=== PATIENT | female | born 1985 | race Caucasian/White ===

== ENCOUNTER 2018-10-09 12:26 | Emergency (ER) | payer MEDICAID ==
[~2018-10-09] VITALS: Ht 157.5 cm; Wt 99.5 kg
[2018-10-09 12:34] VITALS: Ht 157.5 cm; Wt 99.5 kg
[2018-10-09 14:25] VITALS: BP 133/91; PULSE 88; RESP 20
--- NOTE | 2018-10-09 16:08 | ERD ---
ER Documentation Chief Complaint Chief Complaint sent by pcp for removal of left nephrostomy tube HPI This is a 33-year-old female who was sent to the emergency room for evaluation of removal of the left nephrostomy tube. The patient had a nephrostomy tube placed secondary to obstructive ureteral stone that is now resolved. Patient states that she saw her urologist today, Dr. Pierre who sent her to the emergency room. She denies any fevers or chills or significant pain. No other complaints currently. ROS All systems reviewed and are negative except as per history of present illness. Medications Home Meds No Active Prescriptions or Reported Meds Allergies Allergies: Coded Allergies: Penicillins (Unverified Allergy, Unknown, 10/09/18) PMhx/Soc History of Surgery: Yes (cholesystectomy) Anesthesia Reaction: No Hx Neurological Disorder: No Hx Respiratory Disorders: Yes (asthma) Hx Cardiac Disorders: No Hx Psychiatric Problems: No Hx Miscellaneous Medical Probl: No Hx Alcohol Use: No Hx Substance Use: No Hx Tobacco Use: No Smoking Status: Never smoker FmHx Family History: No diabetes Physical Exam Vitals Vital Signs Date Temp Pulse Resp B/P (MAP) Pulse Ox O2 O2 Flow FiO2 Time Delivery Rate 10/09/18 98.9 88 20 133/91 100 Room Air 14:25 (105) 10/09/18 98.9 88 19 136/88 95 12:34 (104) Physical Exam General: Well developed, well nourished, no acute distress Head: Normocephalic, atraumatic. Eyes: EOM intact ENT: Moist mucous membranes Neck: Full ROM Respiratory: No respiratory distress Cardiovascular: Well perfused distally Abdominal: Nondistended Back: Left nephrostomy tube in good position, dressing is clean dry and intact : Deferred MSK: No edema, no unilateral swelling, 5/5 strength Neurologic: Alert and oriented, moving all extremities, normal speech, steady gait Skin: No rash Psych: Normal mood Procedures/MDM The patient was sent initially under her understanding to have a nephrostomy tube removal. However based on my conversation with Dr. Pierre the patient is to be taking 2 days of antibiotics prior to removal. The patient did not receive accurate information from the clinic to set up outpatient nephrostomy tube removal. I have involved binder caser to help her schedule the case. The patient is instructed to take 2 days of Bactrim prior to removal and ciprofloxacin the day of. This is based on Dr. Pierre's recommendation. The patient has been evaluated and seen by case management and will initiate outpatient referral for interventional radiology removal. The patient is otherwise well-appearing without systemic signs or symptoms. She is safe for discharge. Consult: Dr. Pierre, urology The patient does not have an identifiable emergent medical condition that warrants inpatient hospitalization at this time. The patient is deemed safe for discharge with outpatient follow-up. We discussed follow up with the patient's primary care doctor within 24 to 48 ho urs as needed. We also discussed return to the emergency room for worsening symptoms or worsening condition. Outpatient referral: Interventional radiology and urology Departure Diagnosis: Primary Impression: Difficulty managing nephrostomy care Condition: Good Patient Instructions: Medical Screening Exam, Nonurgent Referrals: NISA PIERRE Additional Instructions: You need to make an appointment with interventional radiology to remove your nephrostomy tube. Take 2 days of Bactrim prior to removal and then ciprofloxacin the day of. Follow-up with your urologist. SANTA STOCKTON MD October 09, 2018 16:08
== END 2018-10-09 16:10 | disposition home or self-care (01) ==
LOC: E/R 12:26
DX: Z43.6 Encounter for attention to other artificial openings of urinary tract (principal); J45.909 Unspecified asthma, uncomplicated
CPT/HCPCS: 99282

== ENCOUNTER → 2018-10-24 | Outpatient (CLI) | payer MEDICAID | END | disposition home or self-care (01) | LOC: RAD 12:54 | PROVIDERS: ATTEND Urology | DX: N20.0 Calculus of kidney (principal); N39.0 Urinary tract infection, site not specified | CPT/HCPCS: 36589 ==